=== PATIENT | male | born 1955 | race Caucasian/White ===

== ENCOUNTER → 2017-01-04 | Outpatient (CLI) | payer BC ==
[~2017-01-04] MED LIST: ACETAMINOPHEN PO; CERTAGEN PO; CIPRO PO; COZAAR100 MG PO; FLOMAX0.4 M1 PO; GLUCOSAMINE CHOND; HYDROCODONE-A1 UDTA3 PO; IBUPROFEN PO; LIPITOR40 MG PO; MELOXICAM15 MG PO; NORCO1 TAB 10/3 PO; POSTURE600 MG PO; POTASSIUM GLUCONATE PO; PROBIOTIC1 EAC1 PO; STOOL SOFTENER1 EAC1 PO; VIAGRA PO; VITAMIN C PO
--- NOTE | ~2017-01-04 | EKG ---
PATIENT: NAEL ELLISON UNIT #: [id number] Ventricular Rate: 90 BPM Atrial Rate: 90 BPM P-R Interval: 222 ms QRS Duration: 120 ms Q-T Interval: 378 ms QTC Calculation(Bezet): 462 ms P Milton: 64 degrees Calculated R Milton: -36 degrees Calculated T Milton: 30 degrees Diagnosis Line: Sinus rhythm with 1st degree A-V block Diagnosis Line: Left axis deviation Diagnosis Line: Left ventricular hypertrophy with QRS widening Diagnosis Line: Abnormal ECG Diagnosis Line: When compared with ECG of 18-AUG-2013 09:09, Diagnosis Line: Vent. rate has increased BY 30 BPM Diagnosis Line: Nonspecific T wave abnormality has replaced Diagnosis Line: inverted T waves in Inferior leads Diagnosis Line: Confirmed by ADILIA VU MD ([id number]) on Diagnosis Line: 01/05/2017 8:17:28 AM INTERPRETING MD: MIRELLA EPPS
[2017-01-04 16:03] LABS: HEMATOCRIT 43.1 % (38.0-50.0); HEMOGLOBIN 14.5 gm/dL (13.0-16.0); MEAN CELL VOLUME 87.4 FL (83-96); MEAN CORPUSCULAR HEMOGLOBIN 29.4 PG (28-34); MEAN CORPUSCULAR HGB CONC 33.7 g/dL (30-36); MEAN PLATELET VOLUME 8.4 FL (6.5-11.5); RED BLOOD COUNT 4.93 X10e (3.90-5.60); RED CELL DISTRIBUTION WIDTH 12.6 % (11.0-15.5); WHITE BLOOD COUNT 5.2 X10e3 (4.0-10.5)
[2017-01-04 16:24] LABS: ALBUMIN SERUM 4.9 g/dL (3.5-5.0); ALKALINE PHOSPHATASE 42 U/L (32-92); ALT (SGPT) 47 U/L (10-40); AST (SGOT) 36 U/L (10-42); BILIRUBIN,TOTAL 0.7 mg/dL (0.2-2.0); BLOOD UREA NITROGEN 16 mg/dL (9-23); BUN/CREATININE RATIO 14.54; CALCIUM SERUM 9.3 mg/dL (8.4-10.2); CARBON DIOXIDE 28 mmol/L (22-31); CHLORIDE 104 mmol/L (100-111); CREATININE SERUM 1.1 mg/dL (0.6-1.4); GLOM FILT RATE Estimated ABOVE60 mL/min (>60); GLUCOSE FASTING 101 mg/dL (70-110); POTASSIUM 4.1 mmol/L (3.5-5.1); PROTEIN TOTAL SERUM 7.4 g/dL (6.0-8.3); SODIUM 137 mmol/L (135-145)
== END | disposition home or self-care (01) ==
LOC: CAMB 14:52
PROVIDERS: Specialist
DX: Z01.818 Encounter for other preprocedural examination (principal); K60.2 Anal fissure, unspecified
CPT/HCPCS: 36415; 80053; 85027; 93005

== ENCOUNTER → 2017-01-07 | Day surgery (SDC) | payer BC ==
--- NOTE | ~2017-01-07 | OR ---
Unit #: [id number] #: [id number] Patient: NAEL ORELLANA [id number] [facility] [address]. [place], [place] [address] [id number] O MR#: [id number] NAME: NAEL ORELLANA ROOM: Date of Procedure: 01/07/2017 Admission Date: 01/07/2017 Surgeon: Delta Payne M.D. : 1955 Attending Physician: Delta Payne M.D. Primary Care Physician: Lenin Benton M.D. OPERATIVE REPORT PRIMARY CARE PHYSICIAN Lenin Benton M.D. PREOPERATIVE DIAGNOSIS Chronic posterior anal fissure. POSTOPERATIVE DIAGNOSIS Chronic posterior anal fissure. PROCEDURE PERFORMED Lateral internal sphincterotomy with fissurectomy. ANESTHESIA General endotracheal anesthesia. ESTIMATED BLOOD LOSS 20 mL. INDICATIONS FOR PROCEDURE Mr. Orellana is a 61-year-old gentleman who presented with severe rectal pain and bleeding. On examination, he was found to have a posterior anal fissure. An initial attempt at nonoperative management was done with failure to improve and as a matter of fact, he had progression of his discomfort. On examination, he had a chronic posterior anal fissure with scarring and induration. DESCRIPTION OF PROCEDURE The patient was admitted to [facility], positively identified, and transported to the operating room, and after induction of general endotracheal anesthesia, he was placed in lithotomy position. After being prepped and draped in usual sterile fashion, rectal examination under anesthesia was performed. He had no internal hemorrhoidal disease and no significant external hemorrhoidal disease. He had a chronic posterior midline fissure that had some scarring around the edges in a sentinel pile. In the intersphincteric groove laterally, an 11 blade was inserted into the groove and then the internal sphincter was incised. After incision of the sphincter, I held pressure for 5 minutes and then did a gentle dilatation to break down any remaining fibers. After we had adequate hemostasis, the lateral internal sphincter incision site was closed with a single interrupted chromic suture. I then took Allis clamps to grasp the fissure. The fissure was sharply excised and the mucosa was closed with 3-0 chromic running locked suture. After Unit #: [id number] #: [id number] Patient: NAEL ORELLANA completion of the fissurectomy, 30 mL of 0.5% Marcaine were infiltrated around the perianal area. 2% lidocaine jelly and Gelfoam were placed for further hemostasis. Sponges and needle counts were correct x3. The patient tolerated the procedure well and was transported to recovery in stable condition. Findings and postoperative instructions were discussed with his . Dictated by... Radha Celestin/dasha TD: 01/08/2017 04:25 JOB #: [id number] OPERATIVE REPORT X Delta Payne MD PROCEDURE OPERATIVE NOTE
== END | disposition home or self-care (01) ==
LOC: CSUR 07:01
DX: K60.1 Chronic anal fissure (principal); M19.90 Unspecified osteoarthritis, unspecified site; Z79.899 Other long term (current) drug therapy; Z87.442 Personal history of urinary calculi; Z87.19 Personal history of other diseases of the digestive system; Z82.61 Family history of arthritis; Z82.5 Family history of asthma and other chronic lower respiratory diseases; Z83.3 Family history of diabetes mellitus; Z82.49 Family history of ischemic heart disease and other diseases of the circulatory system; Z87.891 Personal history of nicotine dependence
CPT/HCPCS: J1885; J2250; J2405; J3010

== ENCOUNTER → 2017-03-26 | Day surgery (SDC) | payer BC ==
--- NOTE | ~2017-03-26 | OR ---
Unit #: [id number] #: [id number] Patient: NAEL ELLISON [id number] [facility] [address]. [place], [place] [address] [id number] O MR#: [id number] NAME: NAEL ELLISON ROOM: Date of Procedure: 03/26/2017 Admission Date: 03/26/2017 Surgeon: Delta Payne M.D. : 1955 Attending Physician: Delta Payne M.D. Primary Care Physician: Lenin Benton M.D. OPERATIVE REPORT PRIMARY CARE PHYSICIAN Dr. Lenin Benton. PREOPERATIVE DIAGNOSIS Colorectal cancer screening. POSTOPERATIVE DIAGNOSIS Normal colon and rectum. PROCEDURE PERFORMED Colonoscopy to cecum. ANESTHESIA Monitored anesthesia. INDICATIONS FOR PROCEDURE A 61-year-old gentleman due for surveillance colonoscopy. He is otherwise asymptomatic. DESCRIPTION OF PROCEDURE The patient was admitted to [facility], positively identified, and transported to the endoscopy suite and after appropriate monitoring and positioning, he was sedated by the nurse knit goods press hand. On rectal examination, there was no local anorectal pathology, and on digital examination, prostate was normal. Colonoscope was passed through the anal verge throughout the extent of the colon to the cecum, where the appendiceal orifice and ileocecal valve were photodocumented. On careful antegrade and retrograde visualization, no abnormalities were noted throughout the colon. In the rectal vault, I retroflexed the scope and there was no internal hemorrhoidal disease. The patient tolerated the procedure well, was transported to recovery in stable condition. Findings were discussed with his family. We would recommend a high-fiber diet and a surveillance colonoscopy in 10 years. Dictated by... Radha Celestin/dasha TD: 03/26/2017 11:35 JOB #: [id number] Unit #: [id number] #: [id number] Patient: NAEL ELLISON OPERATIVE REPORT Page 1 of 1 X Delta Payne MD PROCEDURE OPERATIVE NOTE
== END | disposition home or self-care (01) ==
LOC: COPS 05:35
DX: Z12.11 Encounter for screening for malignant neoplasm of colon (principal); K60.2 Anal fissure, unspecified; F17.210 Nicotine dependence, cigarettes, uncomplicated; Z79.899 Other long term (current) drug therapy; Z98.890 Other specified postprocedural states
CPT/HCPCS: J2250

== ENCOUNTER → 2017-06-03 | Outpatient (CLI) | payer BC ==
--- NOTE | ~2017-06-03 | TH ---
Unit #: [id number] #: [id number] Patient: NAEL ELLISON [id number] [facility]. [address] [address] [id number] O MR#: [id number] NAME: NAEL ELLISON. : 1955 SEX: M STUDY DATE/TIME: 06/03/2017 UNIT: [facility] ROOM: STUDY DESCRIPTION: Nuclear Study Attending Physician: Lenin Benton M.D. Referring Physician: Lenin Benton M.D. Primary Care Physician: Lenin Benton M.D. CARDIOLOGY REPORT EXAM Exercise Cardiolite Stress Test - Nuclear Portion PROCEDURE Using technetium 99m labeled Cardiolite, rest and stress SPECT images were obtained. Multiple SPECT images were obtained in various views including horizontal and vertical long axis and short axis views of the left ventricle. Images were obtained by gated SPECT method. The patient was administered 10.50 mCi of Cardiolite at rest. The patient was administered 35.2 mCi of Cardiolite at peak exercise. Total exercise time is 6 minutes 21 seconds. On the stress images, there is a medium size are of moderate decreased isotope activity inferiorly. The rest images also show a medium size are of moderate decreased isotope activity inferiorly. Comparing rest and stress images, there is no stress-induced ischemia noted. The medium size area of predominantly fixed defect seen inferiorly is most likely due to soft tissue artifact. The left ventricular ejection fraction is calculated to be 61%. There is no focal wall motion abnormality seen. CONCLUSION 1. No obvious stress-induced ischemia noted. 2. There is a medium size area of predominantly fixed defect seen inferiorly, most likely due to soft tissue artifact. 3. The left ventricular ejection fraction is calculated to be 61%. 4. There is no focal wall motion abnormality seen. 5. Normal exercise Cardiolite stress test. Dictated by..Radha Reeves TD: 06/04/2017 06:15 JOB #: [id number] Unit #: [id number] #: [id number] Patient: NAEL ELLISON CARDIOLOGY REPORT Page 1 of 1 X Carine Uribe MD <ELECTRONICALLY SIGNED> 07/15/17 [facility] CARDIOLOGY REPORT
--- NOTE | ~2017-06-03 | ST ---
Unit #: [id number] #: [id number] Patient: NAEL ELLISON [id number] [facility]. [address] [address] [id number] O MR#: [id number] NAME: NAEL ELLISON : 1955 SEX: M STUDY DATE/TIME: 06/03/2017 UNIT: [facility] ROOM: STUDY DESCRIPTION: Stress Test Attending Physician: Lenin Benton M.D. Referring Physician: Lenin Benton M.D. Primary Care Physician: Lenin Benton M.D. CARDIOLOGY REPORT EXAM EKG Portion of a Cardiolite Exercise Stress Test REASON FOR EXAM Dyspnea. DESCRIPTION Baseline EKG is sinus rhythm with ventricular rate of 62 and nonspecific T wave abnormality. The patient exercised on the treadmill according to the modified Pierre protocol for 10 minutes 21 seconds, achieving a work level of 11.3 METs. Resting heart rate was 62. Maximal heart rate was 139 beats per minute representing 87% of maximal age predicted heart rate. The patient did not experience any symptoms. No arrhythmias or ST changes were noted. The test was stopped due to achieving maximal heart rate. IMPRESSION This is a negative test. There were no ST segment changes. The patient experienced no symptoms and no arrhythmias. Please correlate with Cardiolite imaging. Dictated by... Charity Smith APRN for Radha Hdz TD: 06/04/2017 05:46 JOB #: [id number] CARDIOLOGY REPORT Page 1 of 1 X CARDIOLOGY REPORT
== END | disposition home or self-care (01) ==
LOC: CNUC 08:08
DX: R06.00 Dyspnea, unspecified (principal)
CPT/HCPCS: 78452; 93017; A9500